=== PATIENT | male | born 1990 | race Two or more races ===

== ENCOUNTER 2018-01-11 15:52 | Outpatient (CLI) | payer OTHER ==
[2018-01-11] MEDS ORDERED: GADOBUTROL 10 MMOL/10 ML VIAL ONE (15:58)
[2018-01-11] MEDS ORDERED: GADOBUTROL 10 MMOL/10 ML VIAL IVP ONE (16:47)
--- NOTE | 2018-01-12 16:10 | MRI Report ---
Reason: PAIN IN UNSPECIFIED ANKLE AND JOINTS OF UNSPECIFIE Procedure Date: 01/11/2018 Accession Number: [id number] / [id number] Procedure: MRI - Ankle RT W/WO CPT Code: FULL RESULT: EXAM: RIGHT ANKLE/HINDFOOT MRI WITHOUT AND WITH CONTRAST EXAM DATE: 01/11/2018 05:00 PM. CLINICAL HISTORY: Cyst on ankle. COMPARISON: None available. TECHNIQUE: Multiplanar, multisequence T1-weighted and fluid-sensitive sequences of the ankle before and after administration of intravenous contrast. IV contrast: . Other: None. FINDINGS: Bones: No fracture. 1.6 cm subchondral cyst with adjacent bone marrow edema at the anterior lateral aspect of the tibial plafond. Minimal bone marrow edema at the lateral aspect of the talar dome. No gross cystic changes. Articular Cartilage: Diffuse shallow partial-thickness loss throughout the tibiotalar joint. Small region of deep partial- to full-thickness loss at the anterior lateral aspect tibial plafond. Deep partial-thickness loss at the lateral margin of the talar dome. Ligaments: Minimal thickening and edema at the intact anterior and posterior tibiofibular and talofibular ligaments. The calcaneofibular ligament mildly attenuated. Mild edema and distortion in the superficial and deep bands of the deltoid ligament. Spring ligament is diffusely distorted. Anterior Tendons: The tibialis anterior, extensor hallucis longus, and extensor digitorum longus tendons are unremarkable. Medial Tendons: The tibialis posterior, flexor digitorum longus, and flexor hallucis longus tendons are unremarkable. Lateral Tendons: Mild thickening of the peroneus longus and to lesser extent the peroneus brevis tendons. No discrete fluid-filled tear. Achilles Tendon: Mild thickening at the mid to distal aspect. Musculature: No edema or fatty atrophy. Other: Minimal joint effusion with enhancement at the tibiotalar joint. The contents of the sinus tarsi and tarsal tunnel are unremarkable. Plantar fascia not included in the [id number]. Minimal subcutaneous edema over the medial and lateral malleoli. IMPRESSION: 1. Moderate to large subchondral cyst at the anterior lateral tibial plafond, likely related to overlying deep partial- to full-thickness cartilage loss. 2. Reactive edema versus early osteochondral lesion lateral margin of the talar dome. Deep partial-thickness cartilage loss at this site. 3. Minimal tibiotalar joint fluid with synovitis. 4. Mild peroneus longus and brevis tendinopathy. 5. Mild Achilles tendinopathy. 6. Sequelae of old sprains at the medial and lateral ligamentous structures with high-grade partial versus complete disruption of the spring ligament. Likely partial-thickness tearing of the deltoid and calcaneofibular ligaments. [facility] MUSCULOSKELETAL RADIOLOGY SECTION
== END 2018-01-11 15:53 | disposition home or self-care (01) ==
LOC: DI 15:52
PROVIDERS: ATTEND Orthopaedic Surgery
DX: M25.571 Pain in right ankle and joints of right foot (principal); M25.871 Other specified joint disorders, right ankle and foot; M65.871 Other synovitis and tenosynovitis, right ankle and foot
CPT/HCPCS: 73723; A9585

== ENCOUNTER 2018-02-12 11:53 | Emergency (ER) | payer OTHER ==
--- NOTE | 2018-02-12 13:07 | XRAY Report ---
Reason: right ankle injury Procedure Date: 02/12/2018 Accession Number: [id number] / [id number] Procedure: XR - Ankle 3 View RT CPT Code: FULL RESULT: EXAM: RIGHT ANKLE RADIOGRAPHY EXAM DATE: 02/12/2018 12:46 PM. CLINICAL HISTORY: Right ankle pain after falling down the stairs today. COMPARISON: None. TECHNIQUE: 3 views. FINDINGS: Bones: No acute fracture. A cystic lucency 1.8 x 1.3 x 1.6 cm in the anterior distal tibia involving metaphysis/epiphysis does not appear aggressive. Joints: No subluxation or obvious joint effusion. Apparent mild widening of the medial clear space. Tiny osteophyte at the tip of the medial malleolus. Soft Tissues: No significant abnormality identified. Small plantar calcaneal enthesophyte. IMPRESSION: 1. No acute fracture or dislocation. 2. Apparent mild widening of the medial clear space but no obvious joint effusion. 3. An incidental 1.8 cm cystic lucency with sclerotic margins in the distal tibia does not appear aggressive. [facility]
[2018-02-12] MEDS ORDERED: NAPROXEN 250 MG TABLET PO STA (13:59)
--- NOTE | 2018-02-12 14:00 | ED Physician Documentation ---
PD HPI LOWER EXT INJURY - Stated complaint Stated Complaint: R ANKLE INJ - Chief complaint Chief Complaint: Ext Problem - History obtained from History obtained from: Patient - History of Present Illness PD HPI LOW EXT INJURY LOCATION: Right, Ankle Type of injury: Fall, Twist Timing - onset: Today Timing - details: Abrupt onset Severity Comments: Moderate Improved by: Rest, Immobilization Worsened by: Moving, Palpating - Additional information Additional information: 27-year-old male with a known history of ankle related issues and currently is being evaluated by orthopedics for a bony cyst presents today for reevaluation of an acute injury which occurred today of the same ankle. The patient twisted his ankle coming down the stairs. No injury to his head, neck or torso or upper extremities. Review of Systems Constitutional: denies: Fever Eyes: denies: Discharge Ears: denies: Ear pain Nose: denies: Congestion Throat: denies: Sore throat Cardiac: denies: Chest pain / pressure Respiratory: denies: Cough GI: denies: Abdominal Pain Skin: denies: Rash Musculoskeletal: reports: Extremity pain, Joint pain. denies: Neck pain Neurologic: denies: Generalized weakness PD PAST MEDICAL HISTORY - Past Medical History Past Medical History: No - Present Medications Home Medications: Ambulatory Orders Medication Instructions Recorded Confirmed traZODone [Desyrel] 02/12/18 - Allergies Allergies/Adverse Reactions: Allergies Allergy/AdvReac Type Severity Reaction Status Date / Time No Known Drug Allergies Allergy Verified 02/12/18 12:15 - Social History Does the pt smoke?: No Smoking Status: Never smoker PD ED PE NORMAL - General General: Alert and oriented X 3, No acute distress - HEENT HEENT: Atraumatic, PERRL, EOMI, Ears normal - Derm Derm: Normal color - Extremities Extremities: No deformity, No edema. No: No tenderness to palpate (The patient has tenderness to palpation of the right ankle, there is no significant swelling or crepitus. The patient has no tenderness of the proximal fibular head or knee or foot. Normal dorsalis pedis pulse.), Normal ROM s pain - Neuro Neuro: Alert and oriented X 3, Normal speech - Psych Psych: Normal affect Results - Vitals Vitals: Vital Signs - 24 hr 02/12/18 12:11 Temperature 36.3 C L Heart Rate 72 Respiratory 14 Rate Blood Pressure 124/84 H O2 Saturation 100 Oxygen O2 Source Room air - Rads (name of study) XR Radiology: Final report received (1. No acute fracture or dislocation. 2. Apparent mild widening of the medial clear space but no obvious joint effusion. 3. An incidental 1.8 cm cystic lucency with sclerotic margins in the distal tibia does not appear aggressive. ) PD MEDICAL DECISION MAKING - ED course ED course: No fracture seen on x-ray, the patient is aware of the incidental finding of the cyst of the tibia and is actually scheduled for surgery. The patient appears appropriate for discharge and ongoing outpatient management. The patient will follow up with his orthopedic surgeon. I discussed warning signs and recommended returning to the emergency department immediately for worsening or any concerns. Departure - Departure Disposition: 01 Home, Self Care Clinical Impression: Ankle sprain Qualifiers: Encounter type: initial encounter Involved ligament of ankle: unspecified ligament Laterality: right Qualified Code(s): S93.401A - Sprain of unspecified ligament of right ankle, initial encounter Condition: Good Instructions: ED Sprain Ankle W X Ray Follow-Up: ZANE OSWALD DO [Primary Care Provider] - Comments: Please follow-up with your orthopedic surgeon. Please return to the emergency department immediately for worsening symptoms or any concerns. Forms: Activity restrictions
[2018-02-12 14:12] VITALS: BP 124/70
== END 2018-02-12 14:12 | disposition home or self-care (01) ==
LOC: ED 11:53
DX: S93.401A Sprain of unspecified ligament of right ankle, initial encounter (principal); W01.0XXA Fall on same level from slipping, tripping and stumbling without subsequent striking against object, initial encounter; X50.1XXA Overexertion from prolonged static or awkward postures, initial encounter; M85.471 Solitary bone cyst, right ankle and foot
CPT/HCPCS: 73610; 99283; A9270

== ENCOUNTER 2019-05-13 01:54 | Emergency (ER) | payer OTHER ==
[2019-05-13 02:02] VITALS: BP 131/86
[2019-05-13] MEDS ORDERED: CLINDAMYCIN 150 MG CAPSULE PO STA (02:14)
--- NOTE | 2019-05-13 02:18 | ED Physician Documentation ---
PD HPI LOWER EXT INJURY - Stated complaint Stated Complaint: BLEEDING RT FOOT - Chief complaint Chief Complaint: Ext Problem - History obtained from History obtained from: Patient (28-year-old man presented to the emergency room with right lower extremity ankle surgical site swelling and tenderness. On April 15, patient had tendon repair and will have a follow-up on May 16. In the meantime the area seems to be delaying healing. This evening, the lower part of the surgical thigh is wet and was small amount of "pus". There is no systemic fever no chills. He has been put back on to regular work which seems to be straining the right lower extremity.), Family - History of Present Illness PD HPI LOW EXT INJURY LOCATION: Right, Ankle Type of injury: Other (recent surgery for tendon repair) Review of Systems Ten Systems: 10 systems reviewed and negative Constitutional: reports: Reviewed and negative Eyes: reports: Reviewed and negative Ears: reports: Reviewed and negative Nose: reports: Reviewed and negative Throat: reports: Reviewed and negative Cardiac: reports: Reviewed and negative Respiratory: reports: Reviewed and negative GI: reports: Reviewed and negative : reports: Reviewed and negative Skin: reports: Reviewed and negative Musculoskeletal: reports: Other (recent right ankle surgery) Neurologic: reports: Reviewed and negative Psychiatric: reports: Reviewed and negative Endocrine: reports: Reviewed and negative Immunocompromised: reports: Reviewed and negative PD PAST MEDICAL HISTORY - Past Medical History Past Medical History: Yes Musculoskeletal: Other (Right ankle tendon repair) - Past Surgical History Past Surgical History: Yes Ortho: Other - Present Medications Home Medications: Ambulatory Orders Medication Instructions Recorded Confirmed traZODone [Desyrel] 02/12/18 Clindamycin [Cleocin] 300 mg PO TID 10 Days #30 capsule 05/13/19 - Allergies Allergies/Adverse Reactions: Allergies Allergy/AdvReac Type Severity Reaction Status Date / Time No Known Drug Allergies Allergy Verified 02/12/18 12:15 - Social History Does the pt smoke?: No Smoking Status: Never smoker PD ED PE NORMAL - Vitals Vital signs reviewed: Yes - General General: Alert and oriented X 3, No acute distress - HEENT HEENT: PERRL - Neck Neck: Supple, no meningeal sign - Cardiac Cardiac: RRR, No murmur - Respiratory Respiratory: No respiratory distress, Clear bilaterally - Abdomen Abdomen: Normal bowel sounds, Soft, Non tender, Non distended - Derm Derm: Warm and dry - Extremities Extremities: Other (Medial aspect of the right ankle incision site has delayed healing, a small amount of drainage out of the lower 1cm of the surgical site. There seems to be delay of healing. There is some soft tissue swelling in the surrounding area.) - Neuro Neuro: Alert and oriented X 3 - Psych Psych: Normal mood, Normal affect Results - Vitals Vitals: Vital Signs - 24 hr 05/13/19 01:57 Temperature 36.5 C Heart Rate 85 Respiratory 18 Rate Blood Pressure 131/86 H O2 Saturation 98 Oxygen O2 Source Room air PD MEDICAL DECISION MAKING - ED course Complexity details: d/w patient ED course: Patient had recent surgery about a month ago for tendon repair. The surgical site has small amount of flatulence especially to the distal 1cm. Patient will soon have a surgical follow-up in 4 to 5 days. He is given first dose of clindamycin 300 mg p.o. in emergency room and will be given prescription. He is asked to follow with his surgeon. In the meantime he will be given 5 days off- duty to decrease amount of strain to the surgical site to promote healing. He is asked to contact his surgical office in the next 2 to 3 days for potential earlier follow-up. Wound has been Cleaned, redressed by the registered nurse Departure - Departure Disposition: ED [place] Clinical Impression: Delayed wound healing Cellulitis Qualifiers: Site of cellulitis: extremity Site of cellulitis of extremity: lower extremity Laterality: right Qualified Code(s): L03.115 - Cellulitis of right lower limb Condition: Stable Instructions: ED Infec Skin Cellulitis Follow-Up: ZANE OSWALD DO [Primary Care Provider] - Prescriptions: Clindamycin [Cleocin] 300 mg PO TID 10 Days #30 capsule Forms: Activity restrictions
[2019-05-13] MEDS ORDERED: BACITRACIN ZINC OINT 1 PACKET TOP STA (02:24)
== END 2019-05-13 02:39 | disposition home or self-care (01) ==
LOC: ED 01:54
DX: T81.89XA Other complications of procedures, not elsewhere classified, initial encounter (principal); L03.115 Cellulitis of right lower limb
CPT/HCPCS: 99282; 99284; A9270

== ENCOUNTER 2020-11-23 20:57 | Emergency (ER) | payer OTHER ==
--- NOTE | 2020-11-23 21:15 | ED Physician Documentation ---
History of Present Illness - Stated complaint Stated Complaint: NAUSEA,HEADACHE - Chief complaint Chief Complaint: General - History obtained from History obtained from: Patient - History of Present Illness Timing: Yesterday Improved by: no ameliorating factors Worsened by: no exacerbating factors - Additonal information Additional information: c/o generalized malaise and myalgias, nausea, generalized headache since yesterday. Denies cough, denies fever, denies dyspnea. He is not COVID vaccinated. He presents with his who is also registered as ED patient with same symptoms. Review of Systems Constitutional: reports: Myalgias, Fatigue. denies: Fever, Chills Cardiac: reports: Reviewed and negative Respiratory: reports: Reviewed and negative GI: reports: Nausea. denies: Vomiting Neurologic: reports: Headache PD PAST MEDICAL HISTORY - Past Medical History Past Medical History: No Musculoskeletal: Other (Right ankle tendon repair) - Past Surgical History Past Surgical History: Yes Ortho: Other - Present Medications Home Medications: Ambulatory Orders Medication Instructions Recorded Confirmed traZODone [Desyrel] 02/12/18 Clindamycin [Cleocin] 300 mg PO TID 10 Days #30 capsule 05/13/19 Ondansetron Odt [Zofran Odt] 4 mg TL Q6H PRN #10 tablet 11/23/20 - Allergies Allergies/Adverse Reactions: Allergies Allergy/AdvReac Type Severity Reaction Status Date / Time No Known Drug Allergies Allergy Verified 02/12/18 12:15 - Social History Does the pt smoke?: No Smoking Status: Never smoker PD ED PE NORMAL - Vitals Vital signs reviewed: Yes - General General: Alert and oriented X 3, No acute distress, Well developed/nourished - Cardiac Cardiac: RRR, No murmur - Respiratory Respiratory: No respiratory distress, Clear bilaterally Results - Vitals Vitals: Vital Signs - 24 hr 11/23/20 11/23/20 21:11 23:32 Temperature 37.0 C Heart Rate 94 73 Respiratory 16 18 Rate Blood Pressure 142/96 H 132/89 H O2 Saturation 96 94 Oxygen O2 Source Room air - Labs Labs: Laboratory Tests 11/23/20 21:58 Nasal Adenovirus (PCR) NOT DETECTED Nasal B. parapertussis DNA (PCR) NOT DETECTED Nasal Coronavir 229E PCR NOT DETECTED Nasal Coronavir HKU1 PCR NOT DETECTED Nasal Coronavir NL63 PCR NOT DETECTED Nasal Coronavir OC43 PCR NOT DETECTED Nasal Enterovir/Rhinovir PCR NOT DETECTED Nasal Influenza B PCR NOT DETECTED Nasal Influenza A PCR NOT DETECTED Nasal Parainfluen 1 PCR NOT DETECTED Nasal Parainfluen 2 PCR NOT DETECTED Nasal Parainfluen 3 PCR NOT DETECTED Nasal Parainfluen 4 PCR NOT DETECTED Nasal RSV (PCR) NOT DETECTED Nasal B.pertussis DNA PCR NOT DETECTED Nasal C.pneumoniae (PCR) NOT DETECTED Aba Human Metapneumo PCR NOT DETECTED Nasal M.pneumoniae (PCR) NOT DETECTED Nasal SARS-CoV-2 (PCR) DETECTED A PD MEDICAL DECISION MAKING - ED course Complexity details: reviewed results, considered differential, d/w patient ED course: presents with generalized malaise, myalgias, headache, nausea since yesterday. He is not COVID vaccinated and mariam's respiratory PCR reveals he is positive for COVID-19. Advised to quarantine in accordance with CDC and [facility] guidelines. Offered option of IV Regeneron which would require returning in the morning and reregister as ED patient if he is interested in receiving this medication. Departure - Departure Disposition: 01 Home, Self Care Clinical Impression: COVID-19 Condition: Good Instructions: COVID-19 [facility] Follow-Up: ABA Matthews [Provider Group] Prescriptions: Ondansetron Odt [Zofran Odt] 4 mg TL Q6H PRN #10 tablet PRN Reason: Nausea / Vomiting Comments: There is an intravenous medication that can be given as a one-time dose for COVID patients if certain criteria are met; you would meet the criteria for this medication. The medication (Regeneron) shortens the course of the illness in some patients, and in some patient it lowers the risk of becoming sick enough to need to be hospitalized. It can only be given during the day when the pharmacist is on the hospital premises. If you are interested in receiving this medication, return to the emergency department in the morning after 8 AM and check in as an emergency department patient for Regeneron infusion. You need to quarantine as per the [facility] and CDC gu idelines. If any friends or family get sick and would like to have a COVID test done, but do not have signs or symptoms that would necessitate being hospitalized, we encourage testing through our coronavirus swabbing station, call [phone] to schedule an appointment. Forms: Activity restrictions Discharge Date/Time: 11/23/20 23:33
[2020-11-23] MEDS ORDERED: ONDANSETRON ODT 4 MG TABLET TL STA (21:48)
[2020-11-23 23:09] LABS: CORONAVIRUS 229E-RESP PCR NOT DETECTED; CORONAVIRUS HKU1-RESP PCR NOT DETECTED; CORONAVIRUS NL63-RESP PCR NOT DETECTED; CORONAVIRUS OC43-RESP PCR NOT DETECTED; HUMAN METAPNEUMOVIRUS NOT DETECTED; INFLUENZA A- RESP PCR PANEL NOT DETECTED; RHINOVIRUS/ENTEROVIRUS NOT DETECTED; SARS-CoV-2 -RESP PCR PANEL DETECTED
[2020-11-23 23:10] LABS: B. PARAPERTUSSIS- RESP PCR PAN NOT DETECTED; B. PERTUSSIS- RESP PCR PANEL NOT DETECTED; C. PNEUMONIAE- RESP PCR PANEL NOT DETECTED; INFLUENZA B - RESP PCR PANEL NOT DETECTED; M. PNEUMONIAE- RESP PCR PANEL NOT DETECTED; PARAINFLUENZA VIRUS 1 NOT DETECTED; PARAINFLUENZA VIRUS 2 NOT DETECTED; PARAINFLUENZA VIRUS 3 NOT DETECTED; PARAINFLUENZA VIRUS 4 NOT DETECTED; RSV- RESP PCR PANEL NOT DETECTED
[2020-11-23 23:33] VITALS: BP 132/89
== END 2020-11-23 23:33 | disposition home or self-care (01) ==
LOC: ED 20:57
DX: U07.1 COVID-19 (principal); R51.9 Headache, unspecified; R11.0 Nausea; M79.10 Myalgia, unspecified site; R53.81 Other malaise
CPT/HCPCS: 0202U; 99283; Q0162

== ENCOUNTER 2021-03-01 22:39 | Emergency (ER) | payer OTHER ==
--- NOTE | 2021-03-02 00:49 | ED Physician Documentation ---
PD HPI SKIN - Stated complaint Stated Complaint: RASH-B FEET - Chief complaint Chief Complaint: Wound - History obtained from History obtained from: Patient - Additional information Additional information: 30-year-old man with past medical history of chronic athlete's foot presents with worsening pain to the space between the toes and to the bottom of the feet. Patient has been applying antifungal cream for the past week without relief. He states that he wears boots at work and thinks that it may be contributing. Denies fever, swelling, or streaking redness of the leg. Review of Systems Constitutional: denies: Fever, Chills Skin: reports: Other (fungal infection between toes of the BL feet) Musculoskeletal: reports: Extremity pain PD PAST MEDICAL HISTORY - Past Medical History Musculoskeletal: Other (Right ankle tendon repair) - Past Surgical History Past Surgical History: Yes Ortho: Other - Present Medications Home Medications: Ambulatory Orders Medication Instructions Recorded Confirmed traZODone [Desyrel] 50 mg PO QPM 02/12/18 Cod Liver Oil/Zinc Oxide [Desitin] 1 appful TOP QID 14 Days #113 gm 03/02/21 Fluconazole 150 mg PO BID #20 tablet 03/02/21 - Allergies Allergies/Adverse Reactions: Allergies Allergy/AdvReac Type Severity Reaction Status Date / Time No Known Drug Allergies Allergy Verified 03/01/21 22:53 - Social History Does the pt smoke?: No Smoking Status: Never smoker PD ED PE NORMAL - Vitals Vital signs reviewed: Yes - General General: Alert and oriented X 3, No acute distress, Well developed/nourished - HEENT HEENT: Atraumatic, PERRL, EOMI - Derm Derm: Normal color, Warm and dry, Other (fungal infection evident with cracks and wet macerated skin between each toe of BL feet. no erythema to dorsum or plantar foot. ) - Extremities Extremities: Other (2+ BL DP pulses. normal sensation, cap refill) - Neuro Neuro: No motor deficit, No sensory deficit Results - Vitals Vitals: Vital Signs - 24 hr 03/01/21 03/02/21 22:49 01:04 Temperature 36.4 C L 36.8 C Heart Rate 78 85 Respiratory 16 14 Rate Blood Pressure 148/100 H 148/96 H O2 Saturation 98 99 Oxygen O2 Source Room air PD MEDICAL DECISION MAKING - ED course ED course: 30-year-old man presents with fungal infection between the toes of his bilateral feet. Symptoms take care discussed. Oral antifungal prescribed as well as encouraging to continue topical antifungal. Desitin barrier cream discussed. Return precautions given. Patient will follow up with [facility]. Departure - Departure Disposition: 01 Home, Self Care Clinical Impression: Fungal infection of foot Condition: Good Instructions: ED Fungal Infec Athlete Foot Prescriptions: Cod Liver Oil/Zinc Oxide [Desitin] 1 appful TOP QID 14 Days #113 gm Fluconazole 150 mg PO BID #20 tablet Comments: You were seen in the emergency department for a fungal foot infection. Please take your oral antifungal medications as prescirbed, continue applying athlete's foot cream, and also keep the area between the toes clean and dry. apply desistin barrier cream at least 4 times daily and change your socks multiple times a day if they get wet. Return to the emergency department if you develop fevers, streaking redness up the foot, new or worsening symptoms or have other concerns[place] Discharge Date/Time: 03/02/21 01:10
[2021-03-02 01:10] VITALS: BP 148/96
== END 2021-03-02 01:10 | disposition home or self-care (01) ==
LOC: ED 22:39
DX: B35.3 Tinea pedis (principal)
CPT/HCPCS: 99282; 99283